=== PATIENT | male | born 1965 | race American Indian/Alaskan Native ===

== ENCOUNTER 2016-08-27 10:56 | Emergency (ER) | payer OTHER ==
[2016-08-27 10:56] VITALS: BMI 20.4
[2016-08-27 11:05] VITALS: BP 115/76; PULSE 108; RESP 20; TEMP 97.8; O2SAT 97
[2016-08-27] MEDS ORDERED: Sodium Chloride 0.9% 1,000 ML IV STA (11:17)
--- NOTE | 2016-08-27 11:18 | ED PDOC ---
HPI: Chest Pain Time Seen by Provider: 08/27/16 11:08 Chief Complaint (Nursing): Cough, Cold, Congestion Chief Complaint (Provider): Chest pain History Per: Patient History/Exam Limitations: no limitations Onset/Duration Of Symptoms: Days (yesterday) Current Symptoms Are (Timing): Still Present Additional Complaint(s): Pt. with chest pain right side with cough, congestion, runny nose. Has bodyaches. Yellow phlegm. Dyspnea with the cough. Pt. with no calf pain, hormone use, long distance travel, weakness, dizziness, headaches, neck pain. Here 2 months ago approx with same symptoms. Was admitted and then signed AMA per pt. because he felt better. No numbness, tingles. Past Medical History Reviewed: Nursing Documentation, Vital Signs Vital Signs: Last Vital Signs Temp 97.8 F 08/27/16 11:04 Pulse 108 H 08/27/16 11:04 Resp 20 08/27/16 11:04 BP 115/76 08/27/16 11:04 Pulse Ox 97 08/27/16 11:33 - Medical History PMH: Bronchitis Denies: HIV, Chronic Kidney Disease - Surgical History Surgical History: No Surg Hx - Family History Family History: States: Unknown Family Hx - Social History Alcohol: None Drugs: Denies - Home Medications Home Medications: Ambulatory Orders Medication Instructions Recorded Azithromycin [Zithromax] 250 mg PO DAILY 5 Days 08/27/16 Ibuprofen [Motrin] 600 mg PO TID 7 Days 08/27/16 - Allergies Allergies/Adverse Reactions: Allergies Allergy/AdvReac Type Severity Reaction Status Date / Time No Known Allergies Allergy Verified 02/12/16 14:33 CHIDI Risk Score for UA/NSTEMI - CHIDI Risk Score Age > 64: NO 3 or more CAD Risk Factors: NO Known CAD (Stenosis greater than 50%): NO Aspirin use in past 7 days: NO Severe Angina: NO EKG ST changes greater than 0.5mm: NO Positive Cardiac Marker: NO CHIDI Score: 0 Risk %: 5% Review of Systems ROS Statement: Except As Marked, All Systems Reviewed And Found Negative ENT: Positive for: Nose Pain, Nose Discharge, Nose Congestion Cardiovascular: Positive for: Chest Pain Respiratory: Positive for: Cough, Shortness of Breath, Sputum Physical Exam - Reviewed Nursing Documentation Reviewed: Yes Vital Signs Reviewed: Yes - Physical Exam Appears: Positive for: Non-toxic, No Acute Distress Head Exam: Positive for: ATRAUMATIC, NORMAL INSPECTION, NORMOCEPHALIC Skin: Positive for: Normal Color, Warm, DRY Eye Exam: Positive for: EOMI, Normal appearance, PERRL ENT: Positive for: Normal ENT Inspection Neck: Positive for: Normal, Painless ROM Cardiovascular/Chest: Positive for: Regular Rate, Rhythm, Chest Non Tender. Negative for: Edema Respiratory: Positive for: Normal Breath Sounds. Negative for: Accessory Muscle Use, Wheezing Gastrointestinal/Abdominal: Positive for: Normal Exam, Bowel Sounds, Soft. Negative for: Tenderness Back: Positive for: Normal Inspection. Negative for: L CVA Tenderness, R CVA Tenderness Extremity: Positive for: Normal ROM. 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 developing infiltrates) - Progress ED Course And Treament: 1253: Stable. Lungs clear. Demanding food. AAOx3. No dyspnea. Ambulated with no issues. Pt. to fu with pcp. Rx. zithromax. Disposition - Clinical Impression Clinical Impression: Bronchitis - Patient ED Disposition Is Patient to be Admitted: No Counseled Patient/Family Regarding: Studies Performed, Diagnosis, Need For Followup, Rx Given - Disposition Referrals: [facility] [Outside] - 08/28/16 Disposition: Routine/Home Disposition Time: 12:54 Condition: STABLE Additional Instructions: Return if not better in 3 days. Prescriptions: Azithromycin [Zithromax] 250 mg PO DAILY 5 Days Ibuprofen [Motrin] 600 mg PO TID 7 Days Instructions: Acute Bronchitis (ED)
--- NOTE | 2016-08-27 12:02 | RAD ---
HISTORY: dyspnea COMPARISON: Comparison made with chest radiograph 05/18/[address] scan chest 05/19/2016. FINDINGS: LUNGS: Hyperinflation with lucent appearance of the upper lobes are consistent with significant centrilobular emphysema seen to much better advantage on prior CT scan chest. Interstitial markings are coarsened in the mid to lower lung zones right greater than left slightly increased from prior study of. . Findings may represent some combination of scarring/atelectasis and bronchiectasis however the possibility of developing interstitial infiltrates not excluded. . PLEURA: No significant pleural effusion identified, no pneumothorax apparent. CARDIOVASCULAR: Normal. OSSEOUS STRUCTURES: No significant abnormalities. VISUALIZED UPPER ABDOMEN: Normal. OTHER FINDINGS: None. IMPRESSION: Significant centrilobular emphysema seen to much better advantage on prior CT scan chest. Interstitial markings are coarsened in the mid to lower lung zones right greater than left slightly increased from prior study . . Findings may represent some combination of scarring/atelectasis and bronchiectasis however the possibility of developing interstitial infiltrates not excluded. .
[2016-08-27 12:06] LABS: BASO # 0.1 K/uL (0.0-0.2); BASO % 0.4 % (0.0-2.0); EOS % 0.2 % (0.0-4.0); HEMATOCRIT 37.7 % (35.0-51.0); LYMPH # 0.9 K/uL (1.0-4.3); LYMPH % 6.3 % (20.0-40.0); MEAN CELL VOLUME 92.7 fl (80.0-94.0); MEAN CORPUSCULAR HEMOGLOBIN 30.9 pg (27.0-31.0); MEAN CORPUSCULAR HGB CONC 33.4 g/dL (33.0-37.0); MEAN PLATELET VOLUME 6.9 fl (7.2-11.7); MONO # 1.9 K/uL (0.0-0.8); MONO % 13.2 % (0.0-10.0); NEUT # 11.4 K/uL (1.8-7.0); NEUT % 79.9 % (50.0-75.0); PLATELET COUNT 278 K/uL (130-400); RED CELL DISTRIBUTION WIDTH 13.3 % (11.5-14.5); WHITE BLOOD COUNT 14.3 K/uL (4.8-10.8)
[2016-08-27 12:17] LABS: ALB/GLOB RATIO 1.1 (1.0-2.1); ALCOHOL SERUM < 10 mg/dl (0-10); ALKALINE PHOSPHATASE 115 U/L (38-126); ALT/SGPT 28 U/L (21-72); AST/SGOT 37 U/L (17-59); BLOOD UREA NITROGEN 8 mg/dl (9-20); CALCIUM 9.3 mg/dL (8.4-10.2); CARBON DIOXIDE 26 mmol/L (22-30); CHLORIDE 98 mmol/L (98-107); GFR AFRICAN-AMERICAN > 60; GLUCOSE,RANDOM 79 mg/dL (75-110); POTASSIUM 3.8 MMOL/L (3.6-5.0); SODIUM 137 mmol/l (132-148)
[2016-08-27 12:57] LABS: BASOPHIL 1 % (0-2); LARGE PLATELETS PRESENT; NEUTROPHIL 77 % (42-75); TOTAL CELLS COUNTED 100
--- NOTE | 2016-08-28 17:01 | CARD ---
APPROVED REPORT EKG Measurement Heart [id number] <Conclusion> Sinus tachycardia Otherwise normal ECG
== END 2016-08-27 13:05 | disposition home or self-care (01) ==
LOC: H.ER 10:56
DX: J20.9 Acute bronchitis, unspecified (principal); R05 Cough; R06.00 Dyspnea, unspecified

== ENCOUNTER 2017-01-14 04:15 | Observation (INO) | payer MEDICAID, OTHER ==
[2017-01-14 04:15] VITALS: BMI 20.4
--- NOTE | 2017-01-14 05:00 | ED PDOC ---
HPI: Chest Pain Time Seen by Provider: 01/14/17 04:39 Chief Complaint (Nursing): Chest Pain Chief Complaint (Provider): chest pain History Per: Patient History/Exam Limitations: no limitations Onset/Duration Of Symptoms: Hrs (12) Current Symptoms Are (Timing): Still Present Quality: Tightness Additional History Per: Patient Additional Complaint(s): 51 y/o male presents with intermittent sharp chest pain x 12 hours. States pain shoots across chest. Denies fever, headache, congestion, cough, shortness of breath, palpitations, leg pain/swelling. Patient states he drank one beer tonight. Patient also notes low back pain x 2 weeks. States symptoms started after lifting heavy heaters. Pain worse when laying flat on back and with positional change. Denies numbness/weakness lower extremities, bowel/bladder incontinence , urinary complaints. Past Medical History Reviewed: Historical Data, Nursing Documentation, Vital Signs Vital Signs: Last Vital Signs Temp 98.8 F 01/14/17 04:34 Pulse 105 H 01/14/17 04:34 Resp 16 01/14/17 04:34 BP 112/77 01/14/17 04:34 Pulse Ox 98 01/14/17 05:50 - Medical History PMH: Bronchitis Denies: HIV, Chronic Kidney Disease - Family History Family History: States: Unknown Family Hx - Social History Current smoker - smoking cessation education provided: Yes Alcohol: Occasional Drugs: Denies - Home Medications Home Medications: Ambulatory Orders Medication Instructions Recorded Azithromycin [Zithromax] 250 mg PO DAILY 5 Days tab 08/27/16 Ibuprofen [Motrin] 600 mg PO TID 7 Days tab 08/27/16 - Allergies Allergies/Adverse Reactions: Allergies Allergy/AdvReac Type Severity Reaction Status Date / Time No Known Allergies Allergy Verified 01/14/17 04:33 CHIDI Risk Score for UA/NSTEMI - CHIDI Risk Score Age > 64: NO 3 or more CAD Risk Factors: NO Known CAD (Stenosis greater than 50%): NO Aspirin use in past 7 days: NO Severe Angina: NO EKG ST changes greater than 0.5mm: NO Positive Cardiac Marker: NO CHIDI Score: 0 Risk %: 5% Review of Systems ROS Statement: Except As Marked, All Systems Reviewed And Found Negative Cardiovascular: Positive for: Chest Pain Musculoskeletal: Positive for: Back Pain Physical Exam - Reviewed Nursing Documentation Reviewed: Yes Vital Signs Reviewed: Yes - Physical Exam Appears: Positive for: Well, Non-toxic, Uncomfortable (tearing in pain) Head Exam: Positive for: ATRAUMATIC, NORMAL INSPECTION, NORMOCEPHALIC Skin: Positive for: Normal Color Eye Exam: Positive for: Normal appearance ENT: Positive for: Normal ENT Inspection Cardiovascular/Chest: Positive for: Regular Rate, Rhythm Respiratory: Positive for: Normal Breath Sounds Gastrointestinal/Abdominal: Positive for: Normal Exam Back: Positive for: Vertebral Tenderness (diffuse lspine), Decreased ROM ( secondary to pain lower back), Muscle Spasm (bilateral lspine paraspinals) Extremity: Positive for: Normal ROM Neurologic/Psych: Positive for: Alert, Oriented, Other (+AOB). Negative for: Motor/Sensory Deficits - Laboratory Results Result Diagrams: 01/14/17 05:11 01/14/17 05:11 - ECG ECG: Positive for: Viewed By Me ECG Rhythm: Positive for: Sinus Rhythm O2 Sat by Pulse Oximetry: 98 Pulse Ox Interpretation: Normal - Radiology X-Ray: Viewed By Me X-Ray Interpretation: No Acute Disease - Other Rad ls xray X-Ray: Viewed By Tx X-Ray Interpretation: no acute findings - Progress ED Course And Treament: labs, ekg, chest xray, lspine xray Case discussed with Dr. Carmona, Hospitalist on-call, for placement in tele obs to r/out ACS. Disposition - Clinical Impression Clinical Impression: Chest pain, Back pain - Disposition Disposition Time: 05:55 Condition: FAIR
[2017-01-14 05:15] LABS: BASO % 1.1 % (0.0-2.0); EOS % 0.5 % (0.0-4.0); HEMATOCRIT 37.5 % (35.0-51.0); LYMPH # 1.7 K/uL (1.0-4.3); LYMPH % 39.7 % (20.0-40.0); MEAN CELL VOLUME 94.9 fl (80.0-94.0); MEAN CORPUSCULAR HEMOGLOBIN 31.7 pg (27.0-31.0); MEAN CORPUSCULAR HGB CONC 33.4 g/dL (33.0-37.0); MEAN PLATELET VOLUME 6.9 fl (7.2-11.7); MONO # 0.5 K/uL (0.0-0.8); MONO % 12.4 % (0.0-10.0); NEUT % 46.3 % (50.0-75.0); NRBC % 0.4 % (0.0-0.0); RED CELL DISTRIBUTION WIDTH 13.2 % (11.5-14.5); WHITE BLOOD COUNT 4.3 K/uL (4.8-10.8)
[2017-01-14 05:24] LABS: ALB/GLOB RATIO 1.2 (1.0-2.1); ALCOHOL SERUM 187 mg/dl (0-10); ALKALINE PHOSPHATASE 128 U/L (38-126); ALT/SGPT 41 U/L (21-72); AST/SGOT 94 U/L (17-59); BILIRUBIN,TOTAL 0.6 mg/dl (0.2-1.3); BLOOD UREA NITROGEN 9 mg/dl (9-20); CARBON DIOXIDE 25 mmol/L (22-30); CHLORIDE 103 mmol/L (98-107); GFR AFRICAN-AMERICAN > 60; GLUCOSE,RANDOM 87 mg/dL (75-110); POTASSIUM 4.2 MMOL/L (3.6-5.0); SODIUM 144 mmol/l (132-148); TOTAL PROTEIN 7.5 G/DL (6.3-8.2)
[2017-01-14] MEDS ORDERED: guaiFENesin 100 mg/5 ml Syrup UD PO PRN (06:24)
--- NOTE | 2017-01-14 06:31 | CP.PCM.HP ---
History of Present Illness - History of Present Illness History of Present Illness: CC: chest pain This is a 51-year-old male with a past medical history of bronchitis and tobacco abuse, who states that he started having intermittent sharp chest pain lasting for 12 hours. He states that the pain goes across his chest and occasionally up into the right side of the snack. He notes that the pain is worse with a deep breath. He is also stating that he has had low back pain for about months. He denies any trauma to the back and says that the symptoms started after lifting heavy objects. The patient denies any numbness or weakness to the lower extremities. His pain is bilateral and worse with movement. In the emergency department, the patient's vitals were stable. Laboratory workup including troponin level is unremarkable. Chest x-ray is also unremarkable as well as his physical exam. He denies any first-degree family members with cardiac disease; although he does remember his father having a pacemaker. The patient is to be placed on observation telemetry unit for workup of chest pain and to rule out the possibility of acute coronary syndrome. Patient denies shortness of breath, fevers, chills, nausea, vomiting, diarrhea, headache. Rest of ROS as below. All of the patient's questions were answered at the bedside. Present on Admission - Present on Admission Any Indicators Present on Admission: No Review of Systems - Hematologic/Lymphatic Additional comments: GENERAL/CONSTITUTIONAL: The patient denies fever, fatigue, weakness, weight gain or weight loss. HEAD, EYES, EARS, NOSE AND THROAT: Eyes - The patient denies pain, redness, loss of vision, double or blurred vision, flashing lights or spots, dryness, Ears, nose, mouth and throat. The patient denies ringing in the ears, loss of hearing, nosebleeds, loss of sense of smell, dry sinuses, sinusitis, post nasal drip, CARDIOVASCULAR: chest pain as in HPI. Denies palpitations RESPIRATORY: The patient denies chronic dry cough, coughing up blood, coughing up mucus, wheezing, or shortness of breath. GASTROINTESTINAL: The patient denies decreased appetite, nausea, vomiting, vomiting blood or coffee ground material, heartburn, regurgitation, diarrhea, constipation, gas, blood in the stools, black tarry stools. GENITOURINARY: The patient denies difficult urination, pain or burning with urination, blood in the urine, frequency, or urgency MUSCULOSKELETAL: back pain as in HPI.The patient denies arm, buttock, thigh or calf cramps. No muscle weakness or tenderness. No joint swelling, neck pain, SKIN: The patient denies easy bruising, skin redness, skin rash, hives, sensitivity to sun exposure, tightness, nodules or bumps, hair loss, color changes in the hands or feet with cold. NEUROLOGIC: The patient denies headache, dizziness, fainting, muscle spasm, loss of consciousness, sensitivity or pain in the hands and feet or memory loss. PSYCHIATRIC: The patient denies anxiety, depression, or thoughts of suicide. ENDOCRINE: The patient denies intolerance to hot or cold temperature, flushing, fingernail changes, increased thirst, increased salt intake or decreased sexual desire. HEMATOLOGIC/LYMPHATIC: The patient denies anemia, bleeding tendency or clotting tendency. ALLERGIC/IMMUNOLOGIC: The patient denies rhinitis, asthma, skin sensitivity, latex allergies or sensitivity. Past Patient History - Infectious Disease Hx of Infectious Diseases: None - Past Medical History & Family History Past Medical History?: Yes Pertinent Family History: patient denies any coronary artery disease in first-degree relatives. He states that his father did have a pacemaker. - Past Social History Smoking Status: Current Some Days Smoker - PULMONARY Hx Bronchitis: Yes Hx Pneumonia: Yes - NEUROLOGICAL Hx Neurological Disorder: No - HEENT Hx HEENT Problems: No - RENAL Hx Chronic Kidney Disease: No - ENDOCRINE/METABOLIC Hx Endocrine Disorders: No - HEMATOLOGICAL/ONCOLOGICAL Hx Human Immunodeficiency Virus (HIV): No - INTEGUMENTARY Hx Dermatological Problems: No - MUSCULOSKELETAL/RHEUMATOLOGICAL Hx Musculoskeletal Disorders: No Hx Falls: No - GASTROINTESTINAL Hx Gastrointestinal Disorders: No - GENITOURINARY/GYNECOLOGICAL Hx Genitourinary Disorders: No - PSYCHIATRIC Hx Psychophysiologic Disorder: No Hx Substance Use: No - SURGICAL HISTORY Hx Surgeries: No - ANESTHESIA Hx Anesthesia: No Meds Allergies/Adverse Reactions: Allergies Allergy/AdvReac Type Severity Reaction Status Date / Time No Known Allergies Allergy Verified 01/14/17 04:33 Physical Exam - Additional Findings Additional findings: EXAM: Vitals stable and reviewed GEN: WDWN, alert, cooperative HEENT: NCAT, PERRL, EOMI Neck: supple, no lymphadenopathy CARDIO: +S1S2, RRR, NO M/R/G LUNG: CTAB, NO W/R/R ABD: soft, NT, ND, no masses, no HSM EXT: no edema, pedal pulses Neuro: AAOx3, Strength equal, bilateral UE/LE Psych: normal mood, normal affect Results - Vital Signs Recent Vital Signs: Last Vital Signs Temp 98.8 F 01/14/17 04:34 Pulse 105 H 01/14/17 04:34 Resp 16 01/14/17 04:34 BP 112/77 01/14/17 04:34 Pulse Ox 98 01/14/17 05:56 - Labs Result Diagrams: 01/14/17 05:11 01/14/17 05:11 Labs: Laboratory Results - last 24 hr 01/14/17 01/14/17 05:11 05:11 WBC 4.3 L D RBC 3.95 L Hgb 12.5 Hct 37.5 MCV 94.9 H D MCH 31.7 H MCHC 33.4 RDW 13.2 Plt Count 206 MPV 6.9 L Neut % (Auto) 46.3 L Lymph % (Auto) 39.7 [place] % (Auto) 12.4 H Eos % (Auto) 0.5 Baso % (Auto) 1.1 Neut # 2.0 Lymph # 1.7 [place] # 0.5 Eos # 0.0 Baso # 0.0 Sodium 144 Potassium 4.2 Chloride 103 Carbon Dioxide 25 Anion Gap 20 BUN 9 Creatinine 0.8 Est GFR ( Amer) > 60 Est GFR (Non-Af Amer) > 60 Random Glucose 87 Calcium 9.0 Total Bilirubin 0.6 AST 94 H ALT 41 Alkaline Phosphatase 128 H Troponin I < 0.0120 Total Protein 7.5 Albumin 4.1 Globulin 3.5 Albumin/Globulin Ratio 1.2 Alcohol, Quantitative 187 H Assessment & Plan - Assessment and Plan (Free Text) Assessment: ASSESSMENT - Chest pain, r/o acute coronary syndrome, although may be musculokskeletal pain secondary to cough from bronchitis - Subacute bronchitis for which he has had about a week, currently on antibiotic therapy with Zithromax - Low back pain secondary to musculoskeletal strain, with no acute findings on X rays PLAN - Place on tele/obs - Continue Serial troponins - EKG in ED unremarkable - Continue Toradol IV for severe back pain and Motrin for moderate pain due to musculoskeletal strain - ASA given in ED - F/u urine toxicology - Lipid profile - Patient estimated to go home later today if his troponin levels rule him out for acute coronary synrdrome
[2017-01-14 06:48] LABS: CHOLESTEROL 191 mg/dL (0-199)
[2017-01-14 06:56] VITALS: RESP 20
--- NOTE | 2017-01-14 08:51 | RAD ---
PROCEDURE: Radiographs of the Lumbar Spine. HISTORY: low back pain COMPARISON: No prior. FINDINGS: BONES: Normal alignment. No listhesis. No fracture. DISC SPACES: Unremarkable. OTHER FINDINGS: Calcified nonaneurysmal abdominal aorta. IMPRESSION: No significant or acute findings to account for/ related to the clinical presentation. Please note: No preliminary report/ innterpretation of this examination provided by emergency department personnel.
--- NOTE | 2017-01-14 08:51 | RAD ---
HISTORY: chest pain COMPARISON: 08/17/2016 single-view chest. 05/19/2016 CT thorax TECHNIQUE: Chest PA and lateral FINDINGS: LUNGS: Interval decrease in interstitial lung disease. PLEURA: No significant pleural effusion identified. No pneumothorax apparent. CARDIOVASCULAR: Normal. OSSEOUS STRUCTURES: No significant abnormalities. VISUALIZED UPPER ABDOMEN: Normal. OTHER FINDINGS: None. IMPRESSION: No active disease. Please note: No preliminary report/ innterpretation of this examination provided by emergency department personnel.
--- NOTE | 2017-01-14 11:36 | CP.PCM.DIS ---
Provider - Provider Date of Admission: 01/14/17 05:53 Attending physician: Norman Carmona DO Primary care physician: None Time Spent in preparation of Discharge (in minutes): 20 Hospital Course - Lab Results Lab Results: Most Recent Lab Values WBC 4.3 K/uL (4.8-10.8) L D 01/14/17 05:11 RBC 3.95 Mil/uL (4.40-5.90) L 01/14/17 05:11 Hgb 12.5 g/dL (12.0-18.0) 01/14/17 05:11 Hct 37.5 % (35.0-51.0) 01/14/17 05:11 MCV 94.9 fl (80.0-94.0) H D 01/14/17 05:11 MCH 31.7 pg (27.0-31.0) H 01/14/17 05:11 MCHC 33.4 g/dL (33.0-37.0) 01/14/17 05:11 RDW 13.2 % (11.5-14.5) 01/14/17 05:11 Plt Count 206 K/uL (130-400) 01/14/17 05:11 MPV 6.9 fl (7.2-11.7) L 01/14/17 05:11 Neut % (Auto) 46.3 % (50.0-75.0) L 01/14/17 05:11 Lymph % (Auto) 39.7 % (20.0-40.0) 01/14/17 05:11 [place] % (Auto) 12.4 % (0.0-10.0) H 01/14/17 05:11 Eos % (Auto) 0.5 % (0.0-4.0) 01/14/17 05:11 Baso % (Auto) 1.1 % (0.0-2.0) 01/14/17 05:11 Neut # 2.0 K/uL (1.8-7.0) 01/14/17 05:11 Lymph # 1.7 K/uL (1.0-4.3) 01/14/17 05:11 [place] # 0.5 K/uL (0.0-0.8) 01/14/17 05:11 Eos # 0.0 K/uL (0.0-0.7) 01/14/17 05:11 Baso # 0.0 K/uL (0.0-0.2) 01/14/17 05:11 Sodium 144 mmol/l (132-148) 01/14/17 05:11 Potassium 4.2 MMOL/L (3.6-5.0) 01/14/17 05:11 Chloride 103 mmol/L (98-107) 01/14/17 05:11 Carbon Dioxide 25 mmol/L (22-30) 01/14/17 05:11 Anion Gap 20 (10-20) 01/14/17 05:11 BUN 9 mg/dl (9-20) 01/14/17 05:11 Creatinine 0.8 mg/dL (0.8-1.5) 01/14/17 05:11 Est GFR ( Amer) > 60 01/14/17 05:11 Est GFR (Non-Af Amer) > 60 01/14/17 05:11 Random Glucose 87 mg/dL (75-110) 01/14/17 05:11 Calcium 9.0 mg/dL (8.4-10.2) 01/14/17 05:11 Total Bilirubin 0.6 mg/dl (0.2-1.3) 01/14/17 05:11 AST 94 U/L (17-59) H 01/14/17 05:11 ALT 41 U/L (21-72) 01/14/17 05:11 Alkaline Phosphatase 128 U/L (38-126) H 01/14/17 05:11 Troponin I < 0.0120 ng/mL (0.00-0.120) 01/14/17 10:15 Total Protein 7.5 G/DL (6.3-8.2) 01/14/17 05:11 Albumin 4.1 g/dL (3.5-5.0) 01/14/17 05:11 Globulin 3.5 gm/dL (2.2-3.9) 01/14/17 05:11 Albumin/Globulin Ratio 1.2 (1.0-2.1) 01/14/17 05:11 Triglycerides 140 mg/DL (0-149) 01/14/17 06:29 Cholesterol 191 mg/dL (0-199) 01/14/17 06:29 LDL Cholesterol Direct < 30 mg/dL (0-129) 01/14/17 06:29 HDL Cholesterol > 110 MG/DL (30-70) H 01/14/17 06:29 Alcohol, Quantitative 187 mg/dl (0-10) H 01/14/17 05:11 - Hospital Course Hospital Course: 51-year-old male with a past medical history of bronchitis, ETOH abuse and tobacco abuse,presented with intermittent sharp chest pain lasting for 12 hours. He states that the pain goes across his chest and occasionally up into the right side of the neck. He notes that the pain is worse with a deep breath. He is also stating that he has had low back pain for about months. He denies any trauma to the back and says that the symptoms started after lifting heavy objects. The patient denies any numbness or weakness to the lower extremities. His pain is bilateral and worse with movement. In the emergency department, the patient's vitals were stable. Laboratory workup including troponin level is unremarkable. Chest x-ray is also unremarkable as well as his physical exam. He denies any first-degree family members with cardiac disease; although he does remember his father having a pacemaker. The patient was be placed on observation in telemetry unit for workup of chest pain and to rule out the possibility of acute coronary syndrome.Patient denies shortness of breath, fevers, chills, nausea, vomiting, diarrhea, headache. patient remained hemodynamically stable, afebrile, chest pain has resolved trop x2 were negative and EKG sjhowed no St_T wave changes ACS was ruled out Will discharge patient home Counselled to follow up with [facility] Counselled on ETOH abuse and smoking Dx ; Atypical chest pain -- ACs ruled out ETOH abuse Tobacco abuse Discharge Exam - Head Exam Head Exam: ATRAUMATIC, NORMAL INSPECTION, NORMOCEPHALIC Additional comments: cachetic poor hygiene dry skin - Eye Exam Eye Exam: EOMI, PERRL Pupil Exam: NORMAL ACCOMODATION - ENT Exam ENT Exam: Mucous Membranes Dry, Normal Exam - Neck Exam Neck exam: Full Rom, Normal Inspection - Respiratory Exam Respiratory Exam: Clear to PA & Lateral, NORMAL BREATHING PATTERN. absent: Accessory Muscle Use, Prolonged Expiratory Phase, Rales, Rhonchi, Wheezes, Respiratory Distress - Cardiovascular Exam Cardiovascular Exam: REGULAR RHYTHM, RRR, +S1, +S2. absent: JVD - GI/Abdominal Exam GI & Abdominal Exam: Normal Bowel Sounds, Soft. absent: Distended, Guarding, Rebound, Tenderness - Rectal Exam Rectal Exam: Deferred - Extremities Exam Extremities exam: normal capillary refill, normal inspection, pedal pulses present - Back Exam Back exam: NORMAL INSPECTION - Neurological Exam Neurological exam: Alert, CN II-XII Intact, Reflexes Normal - Psychiatric Exam Psychiatric exam: Normal Affect, Normal Mood - Skin Skin Exam: Dry, Warm Discharge Plan - Follow Up Plan Condition: STABLE Disposition: HOME/ ROUTINE Patient education suggested?: Yes Instructions: Back Pain (GEN), Chest Pain (DC) Referrals: [facility] [place] [Outside]
[2017-01-14 15:34] VITALS: BP 112/70; PULSE 86; TEMP 98; O2SAT 98
--- NOTE | 2017-01-15 00:58 | CARD ---
APPROVED REPORT EKG Measurement Heart [id number] <Conclusion> Normal sinus rhythm with sinus arrhythmia ST elevation, consider early repolarization, pericarditis, or injury Abnormal ECG
== END 2017-01-14 16:22 | disposition home or self-care (01) ==
LOC: H.ER 04:15 → H.ERHOLD 05:53 → H.TEL 06:45
PROVIDERS: ADMIT Internal Medicine; ATTEND Internal Medicine
DX: R07.89 Other chest pain (principal); F10.10 Alcohol abuse, uncomplicated; F17.200 Nicotine dependence, unspecified, uncomplicated; J20.9 Acute bronchitis, unspecified; Z87.01 Personal history of pneumonia (recurrent); J40 Bronchitis, not specified as acute or chronic; M54.5 Low back pain
CPT/HCPCS: 71020; 72100; 80053; 80061; 84484; 85025; 93005; 99285; G0378; G0480; J1885